=== PATIENT | female | born 1980 | race Two or more races ===

== ENCOUNTER 2024-09-03 09:21 | Emergency (ER) | payer OTHER ==
[~2024-09-03] VITALS: Ht 157.5 cm; Wt 86.2 kg
[2024-09-03 12:01] LABS: COVID-19 AG NEGATIVE (NEGATIVE)
[2024-09-03 12:05] LABS: INFLUENZA A AG NEGATIVE (NEGATIVE)
== END 2024-09-03 12:45 | disposition home or self-care (01) ==
LOC: ER 09:22
PROVIDERS: General Practice
DX: B34.9 Viral infection, unspecified (principal)